=== PATIENT | female | born 1965 | race Caucasian/White ===

== ENCOUNTER 2017-05-04 11:03 | Emergency (ER) | payer MEDICAID ==
[~2017-05-04] VITALS: Ht 162.6 cm; Wt 55.3 kg
[2017-05-04 11:03] VITALS: BP_SYST 111
--- NOTE | 2017-05-04 11:03 | NUR ---
Pt placed to ER bed 02, to gown, to gambling monitor. Pt c/o Left sided C/P x 1 week, worsening today. Denies c/o N/V. Denies SOB. Describes C/P as sharp, but non-radiating.
--- NOTE | 2017-05-04 11:05 | NUR ---
Dr. Godinez at bedside to assess pt.
--- NOTE | 2017-05-04 11:10 | NUR ---
# 20 gauge angiocath placed to RAC. Use of asceptic technique. Opsite placed over site. Blood return noted. Blood for lab drawn from site. Flushed with 10 cc of normal saline. No evidence of infiltration noted. Patient tolerated well.
[2017-05-04] MEDS ORDERED: ASPIRIN 325 MG TABLET PO ONE (11:15)
[2017-05-04] MEDS ORDERED: NITROGLYCERIN 0.4 MG TAB.SUBL SL ONE (11:30)
[2017-05-04 11:34] LABS: BASOPHILS % (AUTO) 0.6 % (0.0-2.0); EOSINOPHILS # (AUTO) 0.3 K/uL (0.0-0.4); HEMATOCRIT 39.8 % (36-48); HEMOGLOBIN 13.6 g/dL (12.0-16.0); LYMPHOCYTES # (AUTO) 2.6 K/uL (1.0-5.5); MEAN CORPUSCULAR HEMOGLOBIN 32 pg (27-31); MEAN CORPUSCULAR HGB CONC 34 % (32-36); MEAN CORPUSCULAR VOLUME 93 fL (79.0-98.0); MONOCYTES # (AUTO) 0.5 K/uL (0.0-1.0); MONOCYTES % (AUTO) 8.2 % (1.7-9.3); NEUTROPHILS # (AUTO) 2.7 K/uL (1.8-7.7); NEUTROPHILS % (AUTO) 44.2 % (40.0-70.0); PLATELET COUNT (AUTO) 184 K/uL (130-430); RED BLOOD CELL COUNT(AUTO) 4.29 MIL/uL (4.2-6.2); RED CELL DISTRIBUTION WIDTH 12.9 % (9.0-15.0); WHITE BLOOD COUNT (AUTO) 6.1 K/uL (4.8-10.8)
[2017-05-04 11:42] LABS: CALCIUM 10.1 mg/dL (8.4-11.0); CREATININE 0.78 mg/dL (0.55-1.30); POTASSIUM 3.6 mmol/L (3.5-5.1)
--- NOTE | 2017-05-04 11:45 | NUR ---
Pt verbalizes improvement in C/P from 02/21 to 12/22. Dr. Godinez notified. Second NTG 0.4 SL given per MD order.
[2017-05-04 11:46] LABS: ALBUMIN 4.9 g/dL (3.4-4.8); TOTAL BILIRUBIN 0.6 mg/dL (0.0-1.0); TOTAL PROTEIN, SERUM 8.2 g/dL (6.4-8.3)
--- NOTE | 2017-05-04 13:00 | NUR ---
Pt states that C/P decreased to 09/23. No SOB. No needs verbalized at this time.
[2017-05-04] MEDS ORDERED: NACL 0.9% 1,000 ML IV ONE (13:15)
[2017-05-04 14:18] VITALS: BP_SYST 118
--- NOTE | 2017-05-04 14:18 | NUR ---
Patient given written and verbal discharge instructions and verbalizes understanding. ER MD discussed with patient the results and treatment provided. Patient in stable condition. ID arm band removed. IV catheter removed intact and dressing applied, no active bleeding. No Rx given. Patient educated on pain management and to follow up with PMD. Pain Scale 1/10. Opportunity for questions provided and answered.
== END 2017-05-04 14:18 | disposition home or self-care (01) ==
LOC: SED 11:03
DX: R07.89 Other chest pain (principal); F41.9 Anxiety disorder, unspecified; E78.5 Hyperlipidemia, unspecified
CPT/HCPCS: 36415; 71010; 80053; 83880; 84484; 85025; 93005; 96360; 99285; J7030